=== PATIENT | male | born 1995 | race Caucasian/White ===

== ENCOUNTER → 2020-11-15 | Outpatient (CLI) | payer OTHER | LOC: MHCPAIN 12:31 | DX: M53.3 Sacrococcygeal disorders, not elsewhere classified (principal); M79.10 Myalgia, unspecified site; M41.86 Other forms of scoliosis, lumbar region; G89.29 Other chronic pain | CPT/HCPCS: G0463 ==

== ENCOUNTER → 2021-02-22 | Outpatient (CLI) | payer OTHER | LOC: MHCPAIN 09:41 | DX: M47.816 Spondylosis without myelopathy or radiculopathy, lumbar region (principal); M79.18 Myalgia, other site; M54.6 Pain in thoracic spine; M54.5 Low back pain; G89.29 Other chronic pain | CPT/HCPCS: G0463 ==

== ENCOUNTER → 2021-03-15 | Outpatient (CLI) | payer OTHER | LOC: MHCPAIN 12:58 | DX: M79.18 Myalgia, other site (principal); M54.6 Pain in thoracic spine; M54.2 Cervicalgia | CPT/HCPCS: J1040 ==